=== PATIENT | male | born 1980 | race Caucasian/White ===

== ENCOUNTER → 2021-12-06 | Outpatient (CLI) | payer BC ==
[2021-12-06 10:19] LABS: BUN/Creatinine Ratio 9.9; Calcium 9.1 mg/dL (8.5-10.1); Potassium 3.6 mmol/L (3.5-5.1)
[2021-12-06 10:27] LABS: Leuteinizing Hormone 5.2 IU/L (1.5-9.3); Prostate Specific Antigen 0.5 ng/mL (0.0-4.0)
== END | disposition home or self-care (01) ==
LOC: LAB 09:21
PROVIDERS: ATTEND Urology
DX: N18.2 Chronic kidney disease, stage 2 (mild) (principal); N52.9 Male erectile dysfunction, unspecified
CPT/HCPCS: 36415; 80048; 83002; 84153; 84403

== ENCOUNTER → 2022-07-24 | Outpatient (CLI) | payer BC | END | disposition home or self-care (01) | LOC: XYW 10:40 | PROVIDERS: ATTEND Internal Medicine | DX: R06.02 Shortness of breath (principal) | CPT/HCPCS: 93306 ==

== ENCOUNTER → 2023-02-25 | Outpatient (CLI) | payer BC ==
[2023-02-25 07:28] LABS: Triglycerides 57 mg/dL (< 150)
[2023-02-25 07:29] LABS: LDL Cholesterol 113 mg/dL (< 100)
[2023-02-25 07:30] LABS: Cholesterol 169 mg/dL (< 200); HDL Cholesterol 45 mg/dL (40-59)
== END | disposition home or self-care (01) ==
LOC: LAB 06:35
PROVIDERS: ATTEND Internal Medicine
DX: E78.5 Hyperlipidemia, unspecified (principal)
CPT/HCPCS: 36415; 80061

== ENCOUNTER → 2023-04-19 | Outpatient (CLI) | payer BC ==
[2023-04-20 09:06] LABS: RPR Non Reactive (Non Reactive)
== END | disposition home or self-care (01) ==
LOC: LAB 06:20
PROVIDERS: ATTEND Internal Medicine
DX: E78.5 Hyperlipidemia, unspecified (principal); N52.9 Male erectile dysfunction, unspecified
CPT/HCPCS: 36415; 82607; 84403; 84443; 86592

== ENCOUNTER → 2024-04-01 | Outpatient (CLI) | payer BC ==
[2024-04-01 06:29] LABS: Urine Bacteria None Seen /hpf (None Seen)
[2024-04-01 06:41] LABS: Urine Blood Negative /uL (Negative); Urine Clarity Clear (Clear); Urine Color Light-Yellow (Yellow); Urine Protein, UAD Negative (Negative); Urine Specific Gravity 1.008 (1.001-1.035); Urine Urobilinogen Normal (Negative); Urine WBC <1 /hpf (0 - 3); Urine pH 6.5 (5.0-9.0)
[2024-04-01 07:08] LABS: Triglycerides 93 mg/dL (< 150)
[2024-04-01 07:10] LABS: Cholesterol 171 mg/dL (< 200); HDL Cholesterol 45 mg/dL (40-59)
[2024-04-01 07:12] LABS: LDL Cholesterol 112 mg/dL (< 100)
== END | disposition home or self-care (01) ==
LOC: LAB 06:12
PROVIDERS: ATTEND Internal Medicine
DX: E78.5 Hyperlipidemia, unspecified (principal); N52.9 Male erectile dysfunction, unspecified
CPT/HCPCS: 36415; 80061; 81001

== ENCOUNTER → 2024-05-01 | Outpatient (CLI) | payer BC ==
[2024-05-01 11:47] LABS: CRP High Sensitivity 0.03 mg/dL (<1.0)
[2024-05-01 11:48] LABS: Albumin 4.7 g/dL (3.2-4.8); Bilirubin, Direct 0.3 mg/dL (<0.3); Bilirubin, Total 0.7 mg/dL (0.2-1.0); Total Protein 7.5 g/dL (5.7-8.2)
[2024-05-01 13:05] LABS: Erythrocyte Sedimentation Rate 2 mm/hr (0-20)
[2024-05-02 11:06] LABS: Complement C3 118 mg/dL (82-167); Rheumatoid Arthritis Factor <10.0 IU/mL (<14.0)
== END | disposition home or self-care (01) ==
LOC: LAB 10:28
PROVIDERS: ATTEND Internal Medicine
DX: E78.5 Hyperlipidemia, unspecified (principal); M25.50 Pain in unspecified joint
CPT/HCPCS: 36415; 80076; 85652; 86141; 86160; 86225; 86235; 86376; 86431

== ENCOUNTER → 2024-08-12 | Outpatient (CLI) | payer BC ==
[2024-08-12 07:21] LABS: Alanine Aminotransferase 29 U/L (7-40); Alkaline Phosphatase 59 U/L (46-116); Anion Gap 10 (5-15); BUN/Creatinine Ratio 10.2 (10.0-20.0); Blood Urea Nitrogen 12 mg/dL (9-23); Calcium 9.9 mg/dL (8.7-10.4); Carbon Dioxide 30 mmol/L (20-31); Chloride 103 mmol/L (98-107); Glucose 93 mg/dL (74-106); Potassium 3.6 mmol/L (3.5-5.1); Sodium 143 mmol/L (136-145); Total Protein 7.7 g/dL (5.7-8.2)
[2024-08-12 07:22] LABS: Aspartate Aminotransferase 20 U/L (13-40); Bilirubin, Total 0.8 mg/dL (0.2-1.0)
[2024-08-12 07:23] LABS: Albumin 4.9 g/dL (3.2-4.8)
[2024-08-12 07:27] LABS: Erythrocyte Sedimentation Rate 2 mm/hr (0-20)
[2024-08-12 07:31] LABS: Basophils # (auto) 0.1 10 ^3/uL (0-0.2); Basophils % (auto) 1.4 % (0.0-2.0); Eosinophils # (auto) 0.3 10 ^3/uL (0-0.8); Eosinophils % (auto) 4.6 % (0.0-7.0); Hematocrit 43.6 % (41.0-53.0); Hemoglobin 15.7 g/dL (13.5-17.5); Lymphocytes # (auto) 2.4 10 ^3/uL (0.4-5.4); Lymphocytes % (auto) 36.3 % (10.0-50.0); Mean Corpuscular Hemoglobin 30.3 pg (28.0-32.0); Monocytes # (auto) 0.7 10 ^3/uL (0-1.3); Monocytes % (auto) 9.9 % (0.0-12.0); Neutrophils # (auto) 3.2 10 ^3/uL (1.6-8.6); Neutrophils % (auto) 47.8 % (37.0-80.0); Nucleated Red Blood Cells % 0.3 %; Platelet Count (auto) 216 10^3/uL (140-450); Red Blood Cells 5.19 10^6/uL (4.5-5.90); Red Cell Distribution Width 13.2 % (11.8-14.3); White Blood Cell 6.7 10^3/uL (4.4-10.8)
== END | disposition home or self-care (01) ==
LOC: LAB 06:10
PROVIDERS: ATTEND Internal Medicine
DX: E78.5 Hyperlipidemia, unspecified (principal); Z00.00 Encounter for general adult medical examination without abnormal findings
CPT/HCPCS: 36415; 80053; 82607; 84443; 85025; 85652